=== PATIENT | male | born 1995 | race Asian ===

== ENCOUNTER 2016-12-10 00:09 | Emergency (ER) | payer OTHER ==
[2016-12-10 00:14] VITALS: TEMP 98.4; O2SAT 96
[2016-12-10] MEDS ORDERED: PROPARACAINE 0.5% 15 ML OPHT DROP ONE (01:23)
[2016-12-10] MEDS ORDERED: FLUORESCEIN SODIUM 1 MG STRIP OP ONE ×2 (01:23→01:25)
[2016-12-10] MEDS ORDERED: PROPARACAINE 0.5% 15 ML OPHT DROP LEFTEYE ONE (01:25)
[2016-12-10] MEDS ORDERED: ERYTHROMYCIN 0.5% 1 GM OPHT.OINT LEFTEYE ONE (01:42)
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
[2016-12-10 01:56] VITALS: BP 120/69; PULSE 73; RESP 16
== END 2016-12-10 01:55 | disposition home or self-care (01) ==
DX: S05.02XA Injury of conjunctiva and corneal abrasion without foreign body, left eye, initial encounter (principal); X58.XXXA Exposure to other specified factors, initial encounter; Y99.8 Other external cause status; Y93.55 Activity, bike riding